=== PATIENT | female | born 1960 | race Caucasian/White ===

== ENCOUNTER 2024-05-17 19:01 | Emergency (ER) | payer SELFPAY ==
[2024-05-17 19:32] VITALS: BP 201/110
[2024-05-17] MEDS: NORCO 5/325 1 TABLET PO (19:53)
[2024-05-17] MEDS: AUGMENTIN 875 MG/125 MG 1 TABLET PO (19:53)
[2024-05-17] MEDS: NORVASC 5 MG PO (20:29)
--- NOTE | 2024-05-17 20:37 | ED.SKININJ ---
HPI-Injury
General
Chief Complaint: Bite
Source: patient
Exam Limitations: none
Time Seen by Provider: 05/17/24 19:28
Nursing documentation reviewed up to this point in time: agreed with
History of Present Illness-Injury
Is this injury a work related problem?: No
Is pt an associate of [facility]/[place]?: No
Initial Injury comments:
Patient states she was bit by daughters dog while trying to stop them from fighting. Dog is UTD with rabies, she had Tdap last year. Sustained bit to base of right thumb and right 4th finger. Incident occurred this AM. SHe was seen at [facility]
but sent to ED for further evaluation of hand injury.
Past History
Past History
ED Past Medical History: HTN
Review of Systems
Review of Systems
Allergies reviewed?: Yes
All Other Systems: ROS reviewed and negative except as documented in HPI and ROS
Constitutional: Reports no symptoms
Musculoskeletal: Reports joint pain (Pain to right thumb)
Skin: Reports other (dog bite base of right thumb, right 4th finger)
Neurological: Reports no symptoms
Psychiatric: Reports no symptoms
Skin Exam
Bite
Right Proximal Thumb:
Type: animal
Skin has: puncture wounds
Surrounding area around bite has: no evidence of erythema and ecchymotic areas (Bruising and swelling to base of thumb)
Normal distal neurovascular exam: Yes
Right Fourth Finger:
Type: animal
Skin has: puncture wounds
Surrounding area around bite has: no evidence of erythema
Distal skin color and temperature: normal-warm & good color
Normal distal neurovascular exam: Yes
Phy Exam
General Physical Exam
General Presentation: well appearing and no apparent distress
General age: appears stated age
General Skin: warm and dry
General Habitus: normal
General Mental: alert
General Hydration: appears well hydrated
Musculoskeletal Exam
Musculoskeletal Exam: full ROM, neuro vasc intact and other (No evidence of tendon injury to thumb or 4th finger)
Skin Exam
Skin Exam: warm/dry and no rash
Psychiatric Exam
Psychiatric Exam: normal mood/affect
Course
Orders/Labs/Results
Orders:
Orders
05/17/24 19:47
Amoxicillin 875 mg/Clav 125 mg [Augmentin 875 mg/125 mg] 1 tablet PO NOW STA
Hydrocodone 5/APAP 325 [[place] 5/325] 1 tablet PO NOW STA
Hand, Right 3 View [CR Hand - Right Min 3 Views] Urgent
Comment:
Reason For Exam: dog bite
05/17/24 20:21
Amlodipine [Norvasc] 5 mg PO NOW STA
Vital Signs
Initial and Last Documented VS:
Initial Vital Signs
Temp Pulse Resp Pulse Ox
98.6 F 78 16 99
05/17/24 19:06 05/17/24 19:06 05/17/24 19:06 05/17/24 19:06
Last Documented Vital Signs
Temp Pulse Resp BP Pulse Ox
98.6 F 78 16 201/110 99
05/17/24 19:06 05/17/24 19:06 05/17/24 19:06 05/17/24 19:32 05/17/24 19:06
*Radiology
Radiology exam reviewed: radiology read reviewed
*Pulse Oximetry
Patient hypoxic: no
*Critical Care Note
Total Time (30-74mins, 75-104mins- exclusive of procedures): Not Applicable
Update Note
Update Note:
Hand soaked 1/2H2O2/water. Flushed bites vigorously with NSS. Bulky dressing applied by RN. No evidence of infection. +swelling. Recommended elevation with sling but patient refused. History of HTN. Should be taking Norvasc 5mg qAM but ran
out of meds and has not had insurance for follow up. Has not taken med in over 1 year. Dose given here. Rx sent to pharmacy for her and family assures me that med will be picked up. Given instructions on s/s to return to ED. Patient and family
are agreeable to plan.
ED Attending Note
-
Portions of this chart may have been created with voice recognition software.� Occasional wrong word or��sound alike� substitutions may have occurred due to the inherent limitations of voice recognition software.
Discharge Plan
Departure
Patient Disposition: Home (Routine Discharge)
Date of Disposition: 05/17/24
Time of Disposition: 20:32
Patient with high blood pressure during this ER visit?: No
Condition: Good
Covid-19: Not Applicable
Discharge Problem:
Dog bite of hand
Instructions: Animal Bites (DC), Wound Care (DC)
Prescriptions:
New
amoxicillin-pot clavulanate 875-125 mg tablet
1 tab PO BID Qty: 20 0RF
hydrocodone-acetaminophen 5-325 mg tablet
1 tab PO Q4H PRN (Reason: Pain) Qty: 10 0RF
amlodipine 5 mg tablet
5 mg PO DAILY Qty: 30 0RF
Referrals:
UNKNOWN - PT DOES,NOT KNOW [Family Provider] -
Activity Restrictions/Additional Instructions:
Warm soaks to your hand 15-20 minutes at a time, 4-5 times daily. Return to the emergency department immediately for fever/chills, increasing pain/redness/swelling to your hand, or for any further concerns.
Interventions
Interventions:
*Risk Screen - Suicide Last Done: 05/17/24 19:33
*General Assessment Last Done: 05/17/24 19:06
*Neglect/Abuse Screening Last Done: 05/17/24 19:33
ED- Fall Risk Assessment Last Done: 05/17/24 19:33
*ED COVID-19 Vaccine History Last Done: 05/17/24 19:06
*Nursing Disposition Last Done: 05/17/24 20:41
ED-Skin Assessment Last Done: 05/17/24 19:32
Discharge Date and Time
Print Language: [place] CITIZ[place]
== END 2024-05-17 20:42 | disposition home or self-care (01) ==
LOC: EMR 19:01
PROVIDERS: EMERGENCY PHYSICIAN Emergency Medicine
DX: S61.451A Open bite of right hand, initial encounter (principal); W54.0XXA Bitten by dog, initial encounter; I10 Essential (primary) hypertension; Z59.71 Insufficient health insurance coverage; Z91.148 Patient's other noncompliance with medication regimen for other reason
CPT/HCPCS: 99283; 73130